=== PATIENT | female | born 1965 | race African-American/Black ===

== ENCOUNTER 2018-05-07 11:19 | Emergency (ER) | payer BC, OTHER ==
[~2018-05-07] VITALS: Ht 167.6 cm; Wt 90.7 kg
--- NOTE | ~2018-05-07 | EKG ---
[place] [address] [facility] [place] [address] ELECTROCARDIOGRAM REPORT Name: NIKKI LE Room #: DEP Samuel#: [id number] Admission: 05/07/18 Attend Phys: Discharge: 05/07/18 Date of : 67 Report #: [id number] THIS REPORT FOR: //name// [facility] ED Test Date: 2018-05-07 Test Time: 11:40:59 Pat Name: NIKKI LE Department: Room: Gender: F [employer] Research Scientist: KKODJOVI : 1965 Requested By: Jennie Fraser Order Number: [id number] MD: Vickey Mendez Measurements Intervals [place] Rate: 67 P: 64 [place]: 174 QRS: 21 QRSD: 84 T: 29 QT: 404 QTc: 427 Interpretive Statements Sinus rhythm No significant abnormality No previous ECG available for comparison Electronically Signed On 05-08-2018 7:56:10 CDT by Vickey Mendez [email or web address] <ELECTRONICALLY SIGNED> By: Vickey Mendez MD, [facility] 05/08/18 [id number] 1140 Vickey Mendez MD, FACC /EPI
[~2018-05-07 11:19] MED LIST: ARTHROTEC 75 T1 EAC1 PO; NAPROSYN500 MG PO; NEURONTIN 300300 M1 PO; SYNTHROID150 MCG PO; TIZANIDINE HCL2 M1 PO; TRAMADOL 50 MG50 MG PO
[2018-05-07] MEDS ORDERED: SYNTHROID137 MC1 PO (11:32)
[2018-05-07] MEDS ORDERED: ASPIR 8181 MG PO (11:33)
[2018-05-07] MEDS ORDERED: TOPAMAX 25 MG T25 M1 PO (11:33)
[2018-05-07] MEDS ORDERED: NORVASC5 MG PO (11:34)
[2018-05-07] MEDS ORDERED: PROZAC20 MG PO (11:34)
[2018-05-07] MEDS ORDERED: ONDANSETRON HCL4 M2 PO (11:35)
[2018-05-07 11:43] LABS: BASOPHILS 1.6 % (0.0-2.0); HEMATOCRIT 40.2 % (37.0-47.0); HEMOGLOBIN 13.8 gm/dL (12.0-15.0); LYMPHOCYTES 45.1 % (24.0-44.0); MCHC 34.4 g/dL (28.0-37.0); MCV 81.5 fL (80.0-100.0); MONOCYTES 6.2 % (1.0-8.0); PLATELET COUNT 280 thou/uL (150-400); POLYS 46.1 % (36.0-66.0); RBC 4.94 mil/uL (4.20-5.00); RDW 14.7 % (10.5-14.5); WBC 6.5 thou/uL (4.0-11.0)
[2018-05-07 11:51] LABS: CALCIUM 9.3 mg/dL (8.5-10.1); CREATININE 1.1 mg/dL (0.6-1.0); POTASSIUM 3.4 mmol/L (3.5-5.1)
[2018-05-07 12:02] LABS: URINE BILIRUBIN NEGATIVE (Negative); URINE BLOOD NEGATIVE (Negative); URINE CLARITY CLEAR; URINE COLOR YELLOW; URINE GLUCOSE-RANDOM* NEGATIVE (Negative); URINE KETONES NEGATIVE (Negative); URINE LEUKOCYTES-REFLEX NEGATIVE (Negative); URINE NITRITE-REFLEX NEGATIVE (Negative); URINE PROTEIN (DIPSTICK) NEGATIVE (Negative); URINE SPECIFIC GRAVITY <= 1.005 (1.005-1.035); URINE UROBILINOGEN 0.2 E.U./dl (0.2-1.0)
[2018-05-07 12:10] LABS: ALBUMIN 3.5 g/dL (3.4-5.0); TOTAL BILIRUBIN 0.4 mg/dL (<0.1-1.0); TOTAL PROTEIN 7.9 g/dL (6.4-8.2)
[2018-05-07 12:11] LABS: AMP/METHAMP Negative (Negative); BARBITURATES Negative (Negative); BENZODIAZEPINES Negative (Negative); COCAINE Negative (Negative); METHADONE Negative (Negative); OPIATES Negative (Negative); PCP Negative (Negative)
== END 2018-05-07 13:21 | disposition home or self-care (01) ==
LOC: ER 11:19
PROVIDERS: Physician Assistant
DX: R56.9 Unspecified convulsions (principal); I12.9 Hypertensive chronic kidney disease with stage 1 through stage 4 chronic kidney disease, or unspecified chronic kidney disease; N18.9 Chronic kidney disease, unspecified; E87.6 Hypokalemia